=== PATIENT | male | born 1945 | race Caucasian/White ===

== ENCOUNTER 2024-02-18 08:25 | Emergency (ER) | payer OTHER ==
[~2024-02-18] VITALS: Ht 180.3 cm; Wt 86.2 kg
[2024-02-18] MEDS: mecliZINE HCL 25 MG TABLET PO ONE (08:44)
[2024-02-18] MEDS: metoCLOPRAmide 10 MG/2 ML VIAL IVP ONE (08:45)
[2024-02-18] MEDS: 0.9%NACL 1000ML 1,000 ML IV ONE (08:45)
[2024-02-18 08:47] LABS: BASOPHILS # (AUTO) 0.07 K/uL (0.00-0.20); BASOPHILS % (AUTO) 0.7 % (0.0-5.0); EOSINOPHILS # (AUTO) 0.09 K/uL (0.00-0.70); EOSINOPHILS % (AUTO) 0.9 % (0.0-8.0); HEMATOCRIT 39.9 % (42-54); IMMATURE GRANULOCYTE ABSOLUTE 0.06 K/uL (0-1); LYMPHOCYTES % (AUTO) 10.4 % (21.0-51.0); MEAN CORPUSCULAR HEMOGLOBIN 29.6 pg (27.0-33.0); MEAN CORPUSCULAR HGB CONC 33.3 g/dL (32.0-36.0); MEAN CORPUSCULAR VOLUME 88.7 fL (79-99); MONOCYTES # (AUTO) 0.4 K/uL (0.1-1.0); MONOCYTES % (AUTO) 4.2 % (3.0-13.0); NEUTROPHILS % (AUTO) 83.2 % (40.0-77.0); PLATELET COUNT (AUTO) 206 K/uL (130-400); RED CELL DISTRIBUTION WIDTH 14.5 % (11.0-15.5); WHITE BLOOD COUNT (AUTO) 9.6 K/uL (4.8-10.8)
[2024-02-18 08:51] LABS: CREATININE 1.3 mg/dL (0.5-1.3); POTASSIUM 5.1 mmol/L (3.5-5.1)
[2024-02-18 09:17] VITALS: BP 135/80; PULSE 87; RESP 16; TEMP 98; O2SAT 96
[2024-02-18 09:45] LABS: ADD UA MICROSCOPIC YES; APPEARANCE,URINE CLEAR (CLEAR); BILIRUBIN,URINE NEGATIVE (NEGATIVE); COLOR,URINE LIGHT-YELLOW (YELLOW); GLUCOSE, URINE (UA) >=1000 mg/dL (NEGATIVE); KETONES,URINE 5 mg/dL (NEGATIVE); LEUKOCYTE ESTERASE ,URINE NEGATIVE Leu/uL (NEGATIVE); NITRATE,URINE NEGATIVE (NEGATIVE); OCCULT BLOOD,URINE NEGATIVE (NEGATIVE); PH,URINE 5.5 (5.0-8.0); PROTEIN,URINE NEGATIVE (NEGATIVE); UROBILINOGEN,URINE 0.2 mg/dL (0.2-1.0)
[2024-02-18 09:46] LABS: MUCUS,URINE RARE LPF (None Seen); RBC,URINE 0-1 /HPF (0-1); WBC,URINE 0-1 /HPF (0-1)
[2024-02-18] MEDS ORDERED: METO5TAB87 PO (10:32)
[2024-02-18] MEDS ORDERED: MECL25TA39 PO (10:32)
== END 2024-02-18 11:16 | disposition home or self-care (01) ==
LOC: EDH 08:25
DX: R42 Dizziness and giddiness (principal); E11.9 Type 2 diabetes mellitus without complications; E78.5 Hyperlipidemia, unspecified; Z98.890 Other specified postprocedural states
CPT/HCPCS: 99285; 96374; 70450; 71045; 96361; 82550; 84484; 80048; 85025; 81001; 36415; 93005; J7030; J2765

== ENCOUNTER → 2025-04-22 | Outpatient (CLI) | payer OTHER ==
[~2025-04-22] MED LIST: MECL25TA39 PO; METO5TAB87 PO
--- NOTE | 2025-04-23 11:03 | HMCIMG ---
EXAM: CT SCAN OF THE RIGHT FOOT WITHOUT CONTRAST Clinical statement: Cellulitis of the right toe. STUDY PROTOCOL: CT radiation dose protocol was performed in accordance with the principles of ALARA. A multislice CT scan of the right foot was performed without intravenous contrast. Sections were obtained through the forefoot and hindfoot. CONTRAST: No intravenous contrast administered. COMPARISON: None provided. FINDINGS: BONES AND JOINTS: [id number] osteoarthritic changes are present at the first metatarsophalangeal joint, with joint space narrowing, subchondral sclerosis, and small periarticular osteophytes. No acute fracture, cortical destruction, or aggressive periosteal reaction is identified to suggest osteomyelitis. Remaining visualized osseous structures are intact without erosions. SOFT TISSUES: Mild periarticular fluid collection/soft tissue prominence is noted about the first metatarsophalangeal joint, compatible with localized inflammatory change in the clinical setting of cellulitis. No discrete rim-enhancing fluid collection, drainable abscess, or soft tissue gas is demonstrated on this noncontrast examination. CALCANEUS / HINDFOOT: Tiny plantar and dorsal calcaneal spurs are present at the calcaneal tuberosity, compatible with early enthesopathic change. No subtalar or midfoot dislocation or acute hindfoot abnormality is seen. OTHER: No radiopaque foreign body is identified. Regional musculature and subcutaneous tissues show no large fluid collection. IMPRESSION: * [id number] osteoarthritis of the first metatarsophalangeal joint, with associated mild periarticular fluid/soft tissue inflammatory change, in the clinical setting of right toe cellulitis. No CT evidence of cortical destruction or aggressive periosteal reaction to suggest sofia osteomyelitis; however, MRI remains more sensitive if clinical concern for early osteomyelitis or septic arthritis persists. * Tiny plantar and dorsal calcaneal spurs at the calcaneal tuberosity, compatible with early enthesopathic change, which may contribute to heel discomfort if clinically symptomatic. /[place]
== END | disposition home or self-care (01) ==
LOC: RAH 13:16
PROVIDERS: ATTEND Emergency Medicine Emergency Medical Services
DX: M19.071 Primary osteoarthritis, right ankle and foot (principal); L03.031 Cellulitis of right toe; M77.31 Calcaneal spur, right foot; M25.774 Osteophyte, right foot
CPT/HCPCS: 73700